=== PATIENT | male | born 1975 | race Caucasian/White ===

== ENCOUNTER 2016-09-24 15:38 | Emergency (ER) | payer OTHER ==
[2016-09-24 15:45] VITALS: BP 129/69
[2016-09-24] MEDS ORDERED: Ibuprofen TAB* 800 MG PO ONE ×2 (17:21)
--- NOTE | 2016-09-24 18:11 | ED ---
Upper Extremity Pain - HPI Summary HPI Summary: Patient presents to ED with CC of L elbow pain after a chair at the movie theater broke and his elbow hit the chair arm rest yesterday afternoon. He has full ROM but felt a strange piece "of bone" in the elbow soon after. He notes bruising and pain but denies pain in wrist or shoulder. He denies other injuries. He has not tried anything for the pain and nothing makes the pain better or worse. - History of Current Complaint Chief Complaint: EDExtremityUpper Stated Complaint: ELBOW SWELLING Time Seen by Provider: 09/24/16 17:36 Hx Obtained From: Patient Mechanism Of Injury: Blunt Trauma Onset/Duration: Started Days Ago Timing: Constant Severity Initially: Mild Severity Currently: Mild Pain Location: Elbow Character: Aching Aggravating Factor(s): Nothing Alleviating Factor(s): Nothing Associated Signs & Symptoms: Positive: Bruising Related History: Dominant Hand Right - Risk Factors Non-Orthopedic Risk Factor: Negative DVT Risk Factors: Negative Septic Arthritis Risk Factor: Negative Compartment Syndrome Risk Factors: Pain - Allergies/Home Medications Allergies/Adverse Reactions: Allergies Allergy/AdvReac Type Severity Reaction Status Date / Time No Known Allergies Allergy Verified 09/24/16 15:42 PMH/Surg Hx/FS Hx/Imm Hx Previously Healthy: Yes Endocrine/Hematology History: Denies: Hx Diabetes, Hx Thyroid Disease Cardiovascular History: Denies: Hx Hypertension Respiratory History: Denies: Hx Asthma, Hx Chronic Obstructive Pulmonary Disease (COPD) GI History: Denies: Hx Ulcer - Surgical History Surgery Procedure, Year, and Place: Tonsillectomyas a child, Splenectomy 1999, Gallbladder 2004, - Immunization History Hx Pertussis Vaccination: No Immunizations Up to Date: No Infectious Disease History: No Infectious Disease History: Reports: Hx Hepatitis Denies: Hx Human Immunodeficiency Virus (HIV), Traveled Outside the [place] in Last 30 Days - Family History Known Family History: Positive: None Negative: Cardiac Disease - Social History Occupation: Employed Full-time Lives: With Family Alcohol Use: None Hx Substance Use: No Substance Use Type: Reports: None Hx Tobacco Use: Yes Smoking Status (MU): Heavy Every Day Tobacco Smoker Review of Systems Constitutional: Negative Eyes: Negative Respiratory: Negative Positive: no symptoms reported, see HPI Positive: Arthralgia, Myalgia Positive: Bruising Positive: Headache Psychological: Normal All Other Systems Reviewed And Are Negative: Yes Physical Exam Triage Information Reviewed: Yes Vital Signs On Initial Exam: Initial Vitals Temp Pulse Resp BP Pulse Ox 98.4 F 58 16 129/69 96 09/24/16 15:43 09/24/16 15:43 09/24/16 15:43 09/24/16 15:43 09/24/16 15:43 Vital Signs Reviewed: Yes Appearance: Positive: Well-Appearing, Well-Nourished Skin: Positive: Warm, Skin Color Reflects Adequate Perfusion, Other - ecchymosis over lateral epicondyle Eyes: Positive: EOMI, MAGAN, Conjunctiva Clear Neck: Positive: Supple, No Lymphadenopathy Respiratory/Lung Sounds: Positive: Clear to Auscultation, Breath Sounds Present Cardiovascular: Positive: Normal, RRR, Pulses are Symmetrical in both Upper and Lower Extremities Musculoskeletal: Positive: Normal, Strength/ROM Intact, Other - Full ROM with L elbow. Flexion and Extension intact. Pulses intact bilaterally. Pain on palpation and bruising. Neurological: Positive: Speech Normal Psychiatric: Positive: Normal AVPU Assessment: Alert Diagnostics - Vital Signs Vital Signs Temp Pulse Resp BP Pulse Ox 09/24/16 15:43 98.4 F 58 16 129/69 96 - Laboratory Lab Statement: Any lab studies that have been ordered have been reviewed, and results considered in the medical decision making process. Course/Dx - Course Course Of Treatment: Patient sent to xray: Ibuprofen 800mg given in ED. Improved symptoms. No fracture seen on xray. Will follow up with Dr. Leger if symptoms persist. - Diagnoses Differential Diagnosis/HQI/PQRI: Positive: Contusion, Fracture (Closed), Hematoma, Strain, Sprain Provider Diagnoses: Contusion, elbow Discharge - Discharge Plan Condition: Stable Disposition: HOME Patient Education Materials: Swollen Joint (ED)
--- NOTE | 2016-09-24 18:58 | RAD ---
INDICATION: Elbow pain and swelling after blunt injury. COMPARISON: None. TECHNIQUE: 4 views left elbow. REPORT: The visualized bones of the left elbow are well corticated and properly aligned. There is no radiographically apparent fracture or dislocation. There is no radiographic evidence of pathologic joint effusion. IMPRESSION: Normal radiograph of the left elbow. If the patient's symptoms persist further follow-up imaging is recommended.
== END 2016-09-24 19:24 | disposition home or self-care (01) ==
LOC: ED 15:38
DX: S50.02XA Contusion of left elbow, initial encounter (principal); W22.8XXA Striking against or struck by other objects, initial encounter; Y92.254 Theater (live) as the place of occurrence of the external cause; F17.200 Nicotine dependence, unspecified, uncomplicated
CPT/HCPCS: 99281; A9270-GY

== ENCOUNTER 2017-12-10 10:47 | Emergency (ER) | payer OTHER ==
--- NOTE | 2017-12-10 11:39 | ED ---
Skin Complaint - HPI Summary HPI Summary: This is nanette Lopez documenting for attending Ramon King MD. This patient is a 42 year old M presenting to ED with a chief complaint of a spider bite since 12/03/17. The CC is described as on his buttocks and filled with pus. The patient rates the pain 8/10 in severity. Symptoms aggravated by nothing. Symptoms alleviated by nothing. Patient reports the pain worsened last night. - History of Current Complaint Chief Complaint: EDRashSkinAbscess Time Seen by Provider: 12/10/17 11:24 Stated Complaint: BUG BITE Hx Obtained From: Patient Onset/Duration: Started Days Ago - since 12/03/17, Still Present Skin Exposure Onset/Duration: Days Ago - since 12/03/17 Timing: Constant, Lasting Days - since 12/03/17 Onset Severity: Moderate Current Severity: Moderate Pain Intensity: 8 Pain Scale Used: 0-10 Numeric Skin Location: Other: - buttocks Character: Painful Aggravating Symptom(s): Nothing Alleviating Symptom(s): Nothing - Allergy/Home Medications Allergies/Adverse Reactions: Allergies Allergy/AdvReac Type Severity Reaction Status Date / Time No Known Allergies Allergy Verified 12/10/17 11:35 PMH/Surg Hx/FS Hx/Imm Hx Endocrine/Hematology History: Denies: Hx Diabetes, Hx Thyroid Disease Cardiovascular History: Denies: Hx Hypertension Respiratory History: Denies: Hx Asthma, Hx Chronic Obstructive Pulmonary Disease (COPD) GI History: Denies: Hx Ulcer - Surgical History Surgery Procedure, Year, and Place: Tonsillectomyas a child, Splenectomy 1999, Gallbladder 2004, Infectious Disease History: No Infectious Disease History: Reports: Hx Hepatitis Denies: Hx Human Immunodeficiency Virus (HIV), Traveled Outside the [place] in Last 30 Days - Family History Known Family History: Negative: Cardiac Disease - Social History Alcohol Use: None Hx Substance Use: No Substance Use Type: Reports: None Hx Tobacco Use: Yes Smoking Status (MU): Heavy Every Day Tobacco Smoker Review of Systems Negative: Fever Positive: Other - spider bite on his buttocks that is painful and filled with pus, pain worsened last night All Other Systems Reviewed And Are Negative: Yes Physical Exam - Summary Physical Exam Summary: VITAL SIGNS: Reviewed. GENERAL: Patient is a well-developed and nourished MALE who is lying comfortable in the stretcher. Patient is not in any acute respiratory distress. HEAD AND FACE: No signs of trauma. No ecchymosis, hematomas or skull depressions. No sinus tenderness. EYES: PERRLA, EOMI x 2, No injected conjunctiva, no nystagmus. EARS: Hearing grossly intact. Ear canals and tympanic membranes are within normal limits. MOUTH: Oropharynx within normal limits. NECK: Supple, trachea is midline, no adenopathy, no JVD, no carotid bruit, no c- spine tenderness, neck with full ROM. CHEST: Symmetric, no tenderness at palpation LUNGS: Clear to auscultation bilaterally. No wheezing or crackles. CVS: Regular rate and rhythm, S1 and S2 present, no murmurs or gallops appreciated. ABDOMEN: Soft, non-tender. No signs of distention. No rebound no guarding, and no masses palpated. Bowel sounds are normal. EXTREMITIES: FROM in all major joints, no edema, no cyanosis or clubbing. NEURO: Alert and oriented x 3. No acute neurological deficits. Speech is normal and follows commands. SKIN: L gluteus abscess and cellultis Triage Information Reviewed: Yes Vital Signs On Initial Exam: Initial Vitals Temp Pulse Resp BP Pulse Ox 97.3 F 86 18 131/83 97 12/10/17 10:50 12/10/17 10:50 12/10/17 10:50 12/10/17 10:50 12/10/17 10:50 Vital Signs Reviewed: Yes Procedures - Incision and Drainage Generalized Site: L gluteus Diagnostics - Vital Signs Vital Signs Temp Pulse Resp BP Pulse Ox 12/10/17 10:50 97.3 F 86 18 131/83 97 - Laboratory Lab Statement: Any lab studies that have been ordered have been reviewed, and results considered in the medical decision making process. Course/Dx - Course Course Of Treatment: Procedure - Incision and Drainage. Patient positioned appropriately, _3_cc lidocaine with/without epinephrine was used as a local anesthetic. #11 blade scalpel used for single incision. Additional local anesthetic injected into surrounding viable tissue prior to blunt dissection of loculated adhesions. Copious drainage of pus was expressed (culture obtained). Wound packed with iodoform gauze. Procedure tolerated without complications. Wound dressed with sterile 4x4 gauze and paper tape. Assessment/Plan: 42-year-old male with abscess and cellulitis. I&D was performed without complication. Please see procedure note. Patient was given Bactrim for the infection and blood cultures were sent. Patient will be following up with the primary care physician or return to the emergency room for wound check. Patient's hemoglobin after stable alert and oriented 3. - Differential Diagnoses - Skin Complaint Differential Diagnoses: Abscess, Cellulitis - Diagnoses Provider Diagnoses: Cellulitis, Abscess Discharge - Sign-Out/Discharge Documenting (check all that apply): Patient Departure - Discharge Plan Condition: Stable Disposition: HOME Prescriptions: Ibuprofen TAB* [Motrin TAB* 600 MG] 600 mg PO Q8H PRN #20 tab PRN Reason: Pain Sulfamethox/Trimethoprim DS* [Bactrim DS 800/160 TAB*] 1 tab PO BID #20 tab Patient Education Materials: Cellulitis (ED), Abscess (ED), Incision and Drainage (ED) Referrals: [facility] [Outside] - 3 Days Additional Instructions: RETURN TO ED FOR ANY WORSENING OR NEW SYMPTOMS. FOLLOW UP WITH YOUR PRIMARY CARE PROVIDER WITHIN ONE WEEK FOR HIGH BLOOD PRESSURE NOTED TODAY.
[2017-12-10 12:50] VITALS: BP 118/79
--- NOTE | 2017-12-12 07:03 | PN ---
Progress Note - Progress Note Date of Service: 12/10/17 Note: Pt. seen in ER 12/10 and had an abscess drained. He was placed on Bactrim. Wound culture today is growing MRSA which should be susceptible to Bactrim. No change in treatment plan needed at this time.
== END 2017-12-10 12:40 | disposition home or self-care (01) ==
LOC: ED 10:47
DX: L02.31 Cutaneous abscess of buttock (principal); F17.200 Nicotine dependence, unspecified, uncomplicated
CPT/HCPCS: 10060; 87070; 87077; 87186; 87205; 87640; 87641; 99282

== ENCOUNTER 2018-01-13 13:52 | Emergency (ER) | payer MEDICAID, OTHER ==
--- NOTE | 2018-01-13 15:38 | ED ---
Shortness of Breath - HPI Summary HPI Summary: This patient is a 43 year old M presenting to ED with a chief complaint of SOB since 01/10/18. The patient was in the restroom at first call to triage. He was not able to catch my breath. The CC is described as alleviated over time. The patient rates the pain 2/10 in severity. Symptoms aggravated by walking. Symptoms alleviated by nothing. Patient reports productive cough and sinus congestion. Patient denies CP. Patient smokes 1 PPD. No hx of clots, COPD, HTN, asthma, and DM. - History of Current Complaint Chief Complaint: EDUpperRespComplaint Time Seen by Provider: 01/13/18 15:19 Hx Obtained From: Patient Onset/Duration: Sudden Onset, Lasting Days - since 01/10/18, Still Present Current Severity: Mild - 2/10 Aggrevating Factors: Nothing Alleviating Factors: Nothing Associated Signs & Symptoms: Cough (Productive) - Patient reports productive cough and sinus congestion. Patient denies CP. - Allergy/Home Medications Allergies/Adverse Reactions: Allergies Allergy/AdvReac Type Severity Reaction Status Date / Time No Known Allergies Allergy Verified 01/13/18 14:11 PMH/Surg Hx/FS Hx/Imm Hx Endocrine/Hematology History: Denies: Hx Diabetes, Hx Thyroid Disease Cardiovascular History: Denies: Hx Coronary Artery Disease, Hx Hypertension Respiratory History: Denies: Hx Asthma, Hx Chronic Obstructive Pulmonary Disease (COPD) GI History: Denies: Hx Ulcer - Surgical History Surgery Procedure, Year, and Place: Tonsillectomyas a child, Splenectomy 1999, Gallbladder 2004, Infectious Disease History: Yes Infectious Disease History: Reports: Hx Hepatitis Denies: Hx Human Immunodeficiency Virus (HIV), Traveled Outside the [place] in Last 30 Days - Family History Known Family History: Negative: Cardiac Disease - Social History Alcohol Use: None Hx Substance Use: No Substance Use Type: Reports: None Hx Tobacco Use: Yes Smoking Status (MU): Heavy Every Day Tobacco Smoker Review of Systems Positive: Other - sinus congestion Negative: Chest Pain Positive: Shortness Of Breath, Cough All Other Systems Reviewed And Are Negative: Yes Physical Exam - Summary Physical Exam Summary: GENERAL: Patient is a well-developed and nourished M who is lying comfortable in the stretcher. Patient is not in any acute respiratory distress. HEAD AND FACE: Normocephalic EYES: PERRLA, EOMI x 2. EARS: Hearing grossly intact. MOUTH: Oropharynx within normal limits. NECK: Supple, trachea is midline, no adenopathy, no JVD, no carotid bruit. CHEST: Symmetric, no tenderness at palpation LUNGS: No crackles. Diffuse wheezing throughout. CVS: Regular rate and rhythm, S1 and S2 present, no murmurs or gallops appreciated. ABDOMEN: Soft, non-tender. Bowel sounds are normal. No abdominal abnormal pulsations. EXTREMITIES: Full ROM in all major joints, no edema, no cyanosis or clubbing. NEURO: Alert and oriented x 3. No acute neurological deficits. Speech is normal and follows commands. SKIN: Dry and warm Triage Information Reviewed: Yes Vital Signs On Initial Exam: Initial Vitals Temp Pulse Resp BP Pulse Ox 99.4 F 72 20 134/91 95 01/13/18 14:11 01/13/18 14:11 01/13/18 14:11 01/13/18 14:11 01/13/18 14:11 Vital Signs Reviewed: Yes Diagnostics - Vital Signs Vital Signs Temp Pulse Resp BP Pulse Ox 01/13/18 14:11 99.4 F 72 20 134/91 95 - Laboratory Result Diagrams: 01/13/18 15:54 01/13/18 15:54 Lab Statement: Any lab studies that have been ordered have been reviewed, and results considered in the medical decision making process. - Radiology CXR Radiology Interpretation Completed By: Radiologist - No radiographic evidence of acute cardiopulmonary disease. ED physician has reviewed this radiology report. - EKG 1620 Cardiac Rate: Bradycardia - 54 BPM EKG Rhythm: Sinus Bradycardia EKG Interpretation: Normal intervals Course/Dx - Course Assessment/Plan: This patient is a 43 year old M presenting to ED with a chief complaint of SOB since 01/10/18. His workup shows leukocyctosis and WBC of 18. His CXR was clear. He was ordered for a breathing treatment, decadron, and IV fluids. However, the patient didnt want any of it and eloped. He came back and is now signing out AMA. - Diagnoses Provider Diagnoses: Shortness of breath Discharge - Sign-Out/Discharge Documenting (check all that apply): Patient Departure - Discharge Plan Condition: Stable Disposition: AGAINST MEDICAL ADVICE Prescriptions: Azithromycin 500 mg PO DAILY #5 tab predniSONE [Prednisone 20 MG TAB] 20 mg PO DAILY #4 tablet Forms: *Work Release Referrals: No Primary Care Phys,NOPCP [Primary Care Provider] - - Billing Disposition and Condition Condition: STABLE Disposition: Against Medical Advice - Attestation Statements Document Initiated by Trudy: Yes Documenting Scribe: Stefano Lopez Provider For Whom Scribe is Documenting (Include Credential): Kaylin Robertson MD Scribe Attestation: Stefano Hutson, scribed for Kaylin Robertson MD on 01/14/18 at 1014. Scribe Documentation Reviewed: Yes Provider Attestation: The documentation as recorded by the Stefano fitzpatrick accurately reflects the service I personally performed and the decisions made by me, Kaylin Robertson MD
[2018-01-13] MEDS ORDERED: Dexamethasone IV* 4 MG/ML 5 ML VIAL (20 MG) IVPB ONE (15:46)
[2018-01-13] MEDS ORDERED: Albuterol/Ipratropium NEB.SOL* Albuterol 2.5 MG/Ipratropium 0.5 MG 3 ML INH ONE (15:46)
[2018-01-13] MEDS ORDERED: Azithromycin IV(*) 500 MG in NS 0.9% 250 ML* 250 ML IVPB ONE (15:47)
[2018-01-13] MEDS ORDERED: NS 0.9% 1000 ML* 1,000 ML IV ONE (15:50)
[2018-01-13 16:05] LABS: Hematocrit 41 % (42-52); Mean Corpuscular HGB Conc 34 g/dl (31-36); Mean Corpuscular Hemoglobin 31 pg (27-31); Mean Corpuscular Volume 91 fL (80-94); Mean Platelet Volume 7.6 um3 (7.4-10.4); Platelet Count 427 10^3/ul (150-450); Red Blood Count 4.53 10^6/ul (4.00-5.40); Red Cell Distribution Width 14 % (10.5-15); White Blood Count 18.2 10^3/ul (3.5-10.8)
[2018-01-13 16:13] LABS: INR 0.95 (0.77-1.02)
[2018-01-13 16:21] LABS: EGFR Non-African American 107.6 (>60)
[2018-01-13 16:31] LABS: ABS Basophils 0.1 10^3/ul (0-0.2); ABS Eosinophils 0.3 10^3/ul (0-0.6); ABS Lymphocytes 3.6 10^3/ul (1.0-4.8); ABS Monocytes 1.6 10^3/ul (0-0.8); ABS Neutrophils 12.4 10^3/ul (1.5-7.7); ABS Nucleated RBC 0 10^3/ul; Eosinophil % 1.8 % (0-6); Nucleated Red Blood Cells % 0
--- NOTE | 2018-01-13 16:52 | RAD ---
INDICATION: Shortness of breath and cough COMPARISON: Chest x-ray 2907 TECHNIQUE: PA and lateral views of the chest were obtained. FINDINGS: The heart and mediastinum are normal in size and contour. The lungs are grossly clear. There is no evidence of large pleural effusion. Visualized bones are normal for the patient's age. There is no radiographic evidence of free air beneath the diaphragm IMPRESSION: No radiographic evidence of acute cardiopulmonary disease.
[2018-01-13] MEDS ORDERED: Dexamethasone IV* 4 MG/ML 1 ML (4 MG) IM ONE ×2 (16:54→17:26)
[2018-01-13 17:11] VITALS: BP 121/81
[2018-01-13] MEDS ORDERED: Azithromycin TAB* 250 MG PO ONE (17:26)
== END 2018-01-13 18:41 | disposition left against medical advice (07) ==
LOC: ED 13:52
DX: R06.02 Shortness of breath (principal); R05 Cough; R09.81 Nasal congestion; R00.1 Bradycardia, unspecified; F17.200 Nicotine dependence, unspecified, uncomplicated
CPT/HCPCS: 36415; 71046; 80053; 83605; 84484; 85025; 85610; 85730; 93005; 99283; A9270-GY; J0456; J1100